=== PATIENT | female | born 1960 | race Caucasian/White ===

== ENCOUNTER 2017-06-16 13:40 | Emergency (ER) | payer OTHER ==
[~2017-06-16] VITALS: Ht 163.8 cm; Wt 66.2 kg
[~2017-06-16 13:40] MED LIST: AMOXICILLIN500 MG PO
[2017-06-16] MEDS ORDERED: EC-NAPROSYN500 MG PO (15:28)
[2017-06-16 15:35] VITALS: BP 130/70
== END 2017-06-16 15:35 | disposition home or self-care (01) | DRG 563 ==
LOC: ED 13:40
DX: S63.502A Unspecified sprain of left wrist, initial encounter (principal); W01.0XXA Fall on same level from slipping, tripping and stumbling without subsequent striking against object, initial encounter; Y93.89 Activity, other specified; Y92.73 Farm field as the place of occurrence of the external cause

== ENCOUNTER 2018-10-19 10:07 | Emergency (ER) | payer OTHER ==
[~2018-10-19] VITALS: Ht 163.8 cm; Wt 63.0 kg
[~2018-10-19 10:07] MED LIST changes: +EC-NAPROSYN500 MG PO
[2018-10-19 10:54] LABS: URINE BILIRUBIN - DIPSTICK NEGATIVE (NEGATIVE); URINE BLOOD DIPSTICK TRACE-INTACT (NEGATIVE); URINE COLOR YELLOW; URINE GLUCOSE - DIPSTICK NEGATIVE (NEGATIVE); URINE KETONE TRACE mg/dL (NEGATIVE); URINE LEUK ESTERASE NEGATIVE (NEGATIVE); URINE NITRITE - DIPSTICK NEGATIVE (Negative); URINE PROTEIN - DIPSTICK NEGATIVE (NEG-TRACE); URINE SPECIFIC GRAVITY 1.015; URINE UROBILINOGEN - DIPSTICK 0.2 E.U./dL (0.2)
[2018-10-19 10:55] LABS: HEMATOCRIT 38.7 % (37.0-47.0); HEMOGLOBIN 12.9 g/dl (12.0-16.0); IMMATURE GRANULOCYTES 0.2 % (0.0-5.0); MEAN CORPUSCULAR HGB 29.3 pG CALC (26.0-32.0); MEAN CORPUSCULAR HGB CONC 33.3 g/L CALC (32.0-36.0); NEUT# 3.92 thou/uL (2.00-7.15); RED BLOOD COUNT 4.4 mill/uL (4.20-5.60); RED CELL DISTRI WIDTH 12.9 % (11.5-15.5)
[2018-10-19 11:23] LABS: ALBUMIN 4.4 g/dL (3.2-5.0); ALKALINE PHOSPHATASE 86 u/l (38-126); ANION GAP 13 (6-22 (CALC)); BILIRUBIN, TOTAL 0.4 mg/dL (0.0-1.4); BUN 19 mg/dL (7-17); BUN/CREATININE RATIO 26 (12-20 (CALC)); CARBON DIOXIDE 24 mmol/l (22-30); CHLORIDE 105 mmol/l (95-108); CREATININE 0.7 mg/dL (0.5-1.0); GFR > 60 ML/MIN (>=60 (CALC)); GFR FOR AFR.AMER. > 60 ML/MIN (>=60 (CALC)); POTASSIUM 4.3 mmol/l (3.5-5.1); SGOT/AST 24 u/l (14-36); SODIUM 138 mmol/l (137-146); TOTAL PROTEIN 7.1 g/dL (6.3-8.2)
[2018-10-19] MEDS ORDERED: BENTYL10 MG PO (11:36)
[2018-10-19] MEDS ORDERED: CIPRO HC PO (11:36)
[2018-10-19] MEDS ORDERED: ONDANSETRON4 MG PO (11:36)
[2018-10-19 11:44] VITALS: BP 113/73
== END 2018-10-19 12:07 | disposition home or self-care (01) | DRG 392 ==
LOC: ED 10:07
PROVIDERS: Emergency Medicine
DX: R19.7 Diarrhea, unspecified (principal)